=== PATIENT | female | born 1985 | race Hispanic/Latino ===

== ENCOUNTER 2018-03-06 10:25 | Day surgery (SDC) ==
[2018-03-06 10:50] VITALS: BMI 30.9
[2018-03-06 10:59] VITALS: BP 116/71; TEMP 98.6
--- NOTE | 2018-03-06 11:56 | HP ---
DATE OF SERVICE: 03/06/2018 LOCATION: Triage, bed A. REASON FOR EVALUATION: Small blood clot passed spontaneously this morning. EGA: 36 weeks and 6 days. This is a patient of Kia Briceno at [facility] [place]. HISTORY OF PRESENT ILLNESS: This is a 32-year-old G2, P1 who sees Kia Briceno for care w ho now is 36 weeks and 6 days with a history of x1, who desires a trial of labor after C-se ction. She arrives because she passed a small coin sized blood clot earlier this morning despite not having any recent trauma, sexual intercourse, or recent cervical exam. There are no contractions or ruptured membranes. She has good movement. She has a history of a right leg DVT in the past for which she is on baby aspirin. She was recommended to take Lovenox, but she deferred/declined. REVIEW OF SYSTEMS: Complete review of systems was checked and is otherwise negative unless specified in the HPI. ALLERGIES: TOPICAL IODINE. PAST SURGICAL HISTORY: 1. Lymph node dissection axillary bilaterally due to hidradenitis suppurativa. 2. . MEDICATIONS: Baby aspirin. FAMILY HISTORY: Mother had a significant pulmonary embolic event. PHYSICAL EXAMINATION: VITAL SIGNS: Blood pressure is 116/71. She is afebrile and had a temperature of 98.6, respirations are 18. GENERAL: Clinically, she is in no acute distress. The patient was seen and evaluated at bedside. ABDOMEN: Soft. There is no palpable contractions. PELVIC: There is no evidence of vaginal bleeding clinically. There is no evidence of ruptured membr anes clinically. On cervical exam she was closed, thick and high. There is no vaginal active bleedi ng noted. On monitor nonstress test was performed per protocol due to a history of deep venous thrombosis and history of vaginal "bleeding", with the NST being reactive. There is no specific contraction pa ttern on tocodynamometer, although there is some slight irritability. ASSESSMENT: This is a 32-year-old, G2, P1, prior x1, who desires a TOLAC, who is currently on baby aspirin as she declined Lovenox for prophylaxis against deep venous thrombosis, who is here with an incidental passage of a coin sized blood clot. No evidence of labor or abruption clinically. PLAN: 1. Reassurance given. 2. I advised the patient to consider Lovenox , which she says that she will do. She also used Lovenox after her previous delivery. 3. It is recommended that she follow up with Hematology/Oncology for thrombophilia management once t his is concluded due to family history and prior DVT history. 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 4. No acute obstetric issues at this time. 5. Okay for outpatient management. 6. Hidradenitis suppurativa inactive at this time.
== END 2018-03-06 11:50 | disposition home health service (06) ==
LOC: L&D/OP 10:25 → EEVIPCON 10:25 → L&D/OP 11:50
PROVIDERS: ATTEND Student in an Organized Health Care Education/Training Program
DX: O22.33 Deep phlebothrombosis in pregnancy, third trimester (principal); Z3A.36 36 weeks gestation of pregnancy; Z91.041 Radiographic dye allergy status
CPT/HCPCS: 99282

== ENCOUNTER 2018-03-29 14:51 | Inpatient (IN) | payer BC ==
[2018-03-29] MEDS ORDERED: Lidocaine 1% (PF) 30 ML VIAL ONE (15:36)
[2018-03-29] MEDS ORDERED: NS / Oxytocin 40 units/1000ml 1,000 ML ONE (15:36)
[2018-03-29] MEDS ORDERED: Ondansetron PF 4 MG/2 ML Vial IVP PRN (16:29)
[2018-03-29] MEDS ORDERED: Penicillin G Potassium 5 MILL.UNITS VIAL ONE (16:29)
[2018-03-29] MEDS ORDERED: Promethazine HCl 25 MG/ML VIAL IM PRN (16:29)
[2018-03-29] MEDS ORDERED: Lidocaine 1% (PF) 30 ML VIAL SC PRN (16:29)
[2018-03-29] MEDS ORDERED: NS / Oxytocin 40 units/1000ml 1,000 ML IV PRN (16:29)
[2018-03-29] MEDS: Lactated Ringer's 1,000 ML IV SCH (16:30)
[2018-03-29] MEDS ORDERED: Methylergonovine 0.2 MG/ML VIAL IM PRN (16:34)
[2018-03-29] MEDS ORDERED: Diphenoxylate HCl/Atropine Tablet PO PRN ×2 (16:34)
[2018-03-29] MEDS ORDERED: Carboprost 250 MCG/ML AMP IM PRN (16:34)
[2018-03-29] MEDS ORDERED: Acetaminophen 500 MG TAB PO PRN (16:34)
[2018-03-29] MEDS ORDERED: Butorphanol Tartrate 1 MG/ML VIAL SLOW IVP PRN (16:34)
[2018-03-29] MEDS ORDERED: Zolpidem Tartrate 5 MG TAB PO PRN (16:34)
[2018-03-29] MEDS ORDERED: Misoprostol 200 MCG TAB PR PRN (16:34)
[2018-03-29] MEDS ORDERED: Ibuprofen 800 MG TAB PO PRN (16:34)
[2018-03-29] MEDS ORDERED: HYDROcodone/Acetaminophen 5/325 mg Tablet PO PRN ×2 (16:34)
[2018-03-29] MEDS ORDERED: Penicillin G Potassium 5 MILL.UNITS in Sodium Chloride 0.9% 100 ML IVPB SCH (17:00)
[2018-03-29 17:13] LABS: Hemoglobin 12.7 g/dL (12.0-16.0); Mean Corpuscular HGB CONC 33.9 g/dL (32.0-36.0); Mean Corpuscular Volume 88.7 fL (78.0-98.0); Mean Platelet Volume 9.7 fL (7.4-10.4); Platelet Count 196 thou/uL (130-400); RBC Distribution Width 11.6 % (11.5-14.5); Red Blood Cell (RBC) Count 4.23 mill/uL (4.20-5.40); White Blood Cell (WBC) Count 8.5 thou/uL (4.8-10.8)
[2018-03-29 17:44] VITALS: BMI 31.3
[2018-03-29 17:53] LABS: HBSAg Index 0.16 S/CO (0-0.99); Hep B Surf Ag Non-Reactive S/CO (NonReactive); Syphilis Antibody Nonreactive (Nonreactive); Syphilis Antibody Index 0.05 S/CO (<1.00 Non-Reactive)
[2018-03-29] MEDS: Penicillin G 2.5 MILL.units 2.5 MILL.UNITS in Premix Bag 1 BAG IVPB SCH (20:10)
--- NOTE | 2018-03-29 23:07 | PDOC.LDHP ---
Labor and Delivery H&P Chief complaint: contractions HPI: She started having irregular contractions on 03/28/18 in the am. She was up all night with continued irregular contractions. 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 She arrived a the hospital around 1530 Current gestational age (weeks): 40 Due date: 03/28/18 Dating criteria: last menstrual period Grav: 3 Para: 1 OB History Details: 12/2016 LTCS for OP/chorio/failure to progess/fhts Current complications: none, other (on aspirin daily for hx of DVT on OCPs) Past Medical History: DVT 2015 right calf. on OCPs. Neg coag workup Current medications: pre- vitamins, other (aspirin) Previous surgical history: low tranverse CS (2016) Allergies/Adverse Reactions: Allergies Allergy/AdvReac Type Severity Reaction Status Date / Time iodine Allergy Verified 03/29/18 18:32 Social history: none - Physical Exam Vital signs reviewed and normal: yes General: breathing through contractions Heart: RRR Lungs: nonlabored breathing Abdomen: gravid FHT: category 1 [place] contractions every: q3-4 - Vaginal Exam cm dilated: 8 Effacement: 90% Station: -1 - OB Labs Blood type: B RH: positive Antibody Screen: negative HIV: negative RPR: negative HEPSAg: negative 1 hour GCT: negative GBS: positive Urine drug screen: not done Rubella: non-immune - Assessment L&D Assessment: term patient in labor - Plan Plan: admit to L&D, GBS antibiotic prophylaxis, informed consent obtained
--- NOTE | 2018-03-29 23:09 | PDOC.OPDEL ---
OB Operative/Delivery Note Delivery Dr/Surgeon: Lucie Briceno CNM Pre-Delivery Diagnosis: active labor Procedure/Post Delivery Dx: vaginal delivery after CS Weeks gestation: 40 Anesthesia: none - Findings A Sex: male Weight: 8 lb 8 oz - 1 min: 9 - 5 min: 9 - Additional Findings/Plan Placenta delivered: spontaneous Repaired Obstetrical Laceration: 1st degree (bilateral labial) Estimated blood loss: 500ml See nurses notes for QBL Compilations/Other Findings: OP presentation at Post delivery plan: routine recovery (Start DVT prophylaxsis at 12-24 hr post delivery.)
[2018-03-30] MEDS ORDERED: HYDROcodone/Acetaminophen 5/325 mg Tablet PO PRN (01:18)
[2018-03-30] MEDS ORDERED: Milk Of Magnesia 30 ML UDCUP PO PRN (01:18)
[2018-03-30] MEDS ORDERED: Methylergonovine 0.2 MG/ML VIAL IM PRN (01:18)
[2018-03-30] MEDS ORDERED: NS / Oxytocin 40 units/1000ml 1,000 ML IV SCH (01:18)
[2018-03-30] MEDS ORDERED: Benzocaine/Menthol 20-0.5% 60 ML CAN TOP PRN (01:18)
[2018-03-30] MEDS ORDERED: Misoprostol 200 MCG TAB VAG PRN (01:18)
[2018-03-30] MEDS ORDERED: Ondansetron PF 4 MG/2 ML Vial IVP PRN (01:18)
[2018-03-30] MEDS ORDERED: Bisacodyl 10 MG SUPP PR PRN (01:18)
[2018-03-30 05:46] LABS: Hemoglobin 10.4 g/dL (12.0-16.0); Mean Corpuscular HGB CONC 33.4 g/dL (32.0-36.0); Mean Corpuscular Hemoglobin 29.5 pg (27.0-31.0); Mean Corpuscular Volume 88.2 fL (78.0-98.0); Mean Platelet Volume 9.4 fL (7.4-10.4); Platelet Count 172 thou/uL (130-400); RBC Distribution Width 11.6 % (11.5-14.5); Red Blood Cell (RBC) Count 3.54 mill/uL (4.20-5.40); White Blood Cell (WBC) Count 14.2 thou/uL (4.8-10.8)
[2018-03-30] MEDS: Ibuprofen 800 MG TAB PO SCH ×3 (05:52→21:10)
[2018-03-30] MEDS: HYDROcodone/Acetaminophen 5/325 mg Tablet PO PRN (06:19)
[2018-03-30] MEDS: Ferrous Sulfate 325 MG TAB PO SCH ×2 (07:25→15:12)
[2018-03-30] MEDS: Penicillin G 2.5 MILL.units 2.5 MILL.UNITS in Premix Bag 1 BAG IVPB SCH (07:27)
[2018-03-30] MEDS: Lactated Ringer's 1,000 ML IV SCH (07:27)
[2018-03-30] MEDS ORDERED: Adacel (T-DAP) 0.5 ML VIAL IM ONE (09:00)
[2018-03-30] MEDS ORDERED: Measles/Mumps/Rubella 10 MCG/0.5 ML VIAL SC ONE (09:00)
[2018-03-30] MEDS: Enoxaparin Sodium 40 MG/0.4 ML SYRINGE SC SCH (09:13)
[2018-03-30] MEDS: Prenatal Vitamin 1 TAB PO SCH (09:13)
[2018-03-30] MEDS: Docusate Calcium (SURFAK) 240 MG CAP PO SCH ×2 (09:13→21:11)
--- NOTE | 2018-03-30 13:54 | PDOC.PP ---
Post Progress Note Post Day #: 1 Subjective: doing well. is okay, is sleepy. the abscess near the top of her sacrum is irritated again now that she is no longer payigng attention to the contractions. PO intake tolerated: yes Flatus: yes Ambulation: yes Vital Signs (12 hours) Temp Pulse Resp BP Pulse Ox 03/30/18 11:18 98.4 F 97 20 105/69 03/30/18 07:34 98.0 F 71 20 101/70 100 03/30/18 03:45 98.1 F 80 18 97/55 L 03/30/18 02:15 97.7 F 91 18 109/57 L Weight Weight 200 lb - Physical Examination General: NAD Cardiovascular: no m/r/g Respiratory: non-labored breathing Abdominal: lochia (minimal) Fundus firm & at: -1 Extremities: negative homans (B) Skin: no rash Neurological: no gross focal deficits Psychiatric: A&Ox3 Result Diagrams: 03/30/18 05:32 Additional Labs: Post Labs Blood Type B POSITIVE 03/29/18 16:59 Hep Bs Antigen Non-Reactive S/CO (NonReactive) 03/29/18 16:59 (1) Vaginal after Code(s): O34.219 - MATERNAL CARE FOR UNSP TYPE SCAR FROM PREVIOUS DEL Status: Acute (2) History of DVT (deep vein thrombosis) Code(s): Z86.718 - PERSONAL HISTORY OF OTHER VENOUS THROMBOSIS AND EMBOLISM Status: Acute
--- NOTE | 2018-03-30 14:35 | ULT ---
ULTRASOUND SOFT TISSUE: HISTORY: Pilonidal cyst. COMPARISON: None. FINDINGS: Real-time, yoder scale, and color evaluation of the sacral alae was performed. The complex cystic str ucture in the superficial soft tissues measuring 2.7 x 3.3 x 1.9 cm. This corresponds to a complicat ed [id number] cyst. There is edema within the adjacent soft tissues. IMPRESSION: Findings suggestive of pilonidal cyst in the superficial soft tissues just below the lower end of the coccyx. POS: LD
--- NOTE | 2018-03-30 17:41 | PDOC.EVN ---
Event Note - Event Note Event Note: US is consistent with pilonidal cyst. Needs excision. Plan for OR tomorrow. Discussed with RN. Have placed NPO orders, ct. fadi rowland We will continue to follow along.
[2018-03-30] MEDS ORDERED: Cefadroxil Hydrate 500 mg/5 ml Suspenion PO SCH (21:00)
[2018-03-30] MEDS ORDERED: Cefadroxil Hydrate 250 mg/5 ml Suspensio PO SCH (21:30)
[2018-03-31] MEDS: HYDROcodone/Acetaminophen 5/325 mg Tablet PO PRN (04:14)
[2018-03-31] MEDS: Ibuprofen 800 MG TAB PO SCH ×2 (05:57→13:41)
[2018-03-31 08:14] VITALS: BP 111/72; TEMP 98.8
[2018-03-31] MEDS ORDERED: Cefadroxil Hydrate 250 mg/5 ml Suspensio PO SCH ×2 (09:00)
[2018-03-31] MEDS: Ferrous Sulfate 325 MG TAB PO SCH (09:02)
[2018-03-31] MEDS: Prenatal Vitamin 1 TAB PO SCH (09:34)
[2018-03-31] MEDS: Docusate Calcium (SURFAK) 240 MG CAP PO SCH (09:34)
[2018-03-31] MEDS: Enoxaparin Sodium 40 MG/0.4 ML SYRINGE SC SCH (09:35)
--- NOTE | 2018-03-31 10:52 | PDOC.PP ---
Post Progress Note Post Day #: 2 Subjective: doing well. decided not to have surgery on pilonidal cyst but will continue to take antibiotics. PO intake tolerated: yes Flatus: yes Ambulation: yes Vital Signs (12 hours) Temp Pulse Resp BP Pulse Ox 03/31/18 08:13 98.8 F 75 20 111/72 100 Weight Weight 200 lb - Physical Examination General: NAD Respiratory: non-labored breathing Abdominal: + bowel sounds Extremities: negative homans (B) Skin: no rash Neurological: no gross focal deficits Psychiatric: A&Ox3 Result Diagrams: 03/30/18 05:32 Additional Labs: Post Labs Blood Type B POSITIVE 03/29/18 16:59 Hep Bs Antigen Non-Reactive S/CO (NonReactive) 03/29/18 16:59 (1) Vaginal after Code(s): O34.219 - MATERNAL CARE FOR UNSP TYPE SCAR FROM PREVIOUS DEL Status: Acute (2) History of DVT (deep vein thrombosis) Code(s): Z86.718 - PERSONAL HISTORY OF OTHER VENOUS THROMBOSIS AND EMBOLISM Status: Acute - Assessment/Plan dischage home today on abx and lovenox
== END 2018-03-31 14:45 | disposition home or self-care (01) | DRG 807 ==
LOC: L&D/OP 14:51 → L&D 18:37 → 3SW 03-30 01:13
PROVIDERS: ADMIT Obstetrics & Gynecology; ATTEND Obstetrics & Gynecology
PROC: 10E0XZZ Delivery of Products of Conception, External Approach (ICD-10-PCS; principal; 2018-03-29)
PROC: 0HQ9XZZ Repair Perineum Skin, External Approach (ICD-10-PCS; 2018-03-29)
PROC: 10907ZC Drainage of Amniotic Fluid, Therapeutic from Products of Conception, Via Natural or Artificial Opening (ICD-10-PCS; 2018-03-29)
DX: O34.211 Maternal care for low transverse scar from previous cesarean delivery (principal); Z37.0 Single live birth; Z86.718 Personal history of other venous thrombosis and embolism; Z79.82 Long term (current) use of aspirin; Z3A.40 40 weeks gestation of pregnancy; O70.0 First degree perineal laceration during delivery; O99.824 Streptococcus B carrier state complicating childbirth
CPT/HCPCS: 36415; 76999; 84112; 85027; 86780; 86850; 86900; 86901; 87340; 99285; J1650; J2001; J2540

== ENCOUNTER 2018-04-04 11:22 | Emergency (ER) | payer BC ==
[2018-04-04 12:03] LABS: #Eosinphils 0.1 thou/uL (0.0-0.7); #Lymphocytes 1.3 thou/uL (1.20-3.40); #Monocytes 0.4 thou/uL (0.11-0.59); #Neutrophils 3.5 thou/uL (1.40-6.50); %Basophils 0.5 % (0.0-1.0); %Eosinophils 1.2 % (0.0-10.0); %Lymphocytes 24.3 % (21.0-51.0); %Monocytes 7.6 % (0.0-10.0); %Neutrophils 66.4 % (42.0-75.0); Hemoglobin 10.7 g/dL (12.0-16.0); Mean Corpuscular HGB CONC 32.9 g/dL (32.0-36.0); Mean Corpuscular Hemoglobin 29.4 pg (27.0-31.0); Mean Corpuscular Volume 89.5 fL (78.0-98.0); Mean Platelet Volume 8.5 fL (7.4-10.4); Platelet Count 274 thou/uL (130-400); RBC Distribution Width 11.6 % (11.5-14.5); Red Blood Cell (RBC) Count 3.65 mill/uL (4.20-5.40); White Blood Cell (WBC) Count 5.3 thou/uL (4.8-10.8)
[2018-04-04 12:30] LABS: ALT (SGPT) 29 U/L (8-55); AST (SGOT) 44 U/L (5-34); Albumin 3.2 g/dL (3.5-5.0); Alkaline Phosphatase 94 U/L (40-150); Anion Gap 12 mmol/L (10-20); BUN (Urea Nitrogen) 9 mg/dL (7.0-18.7); Bilirubin, Total 0.8 mg/dL (0.2-1.2); CK (CPK) 416 U/L (29-168); Calc. Creatinine Clearance 0 mL/min (70-130); Calcium 8.7 mg/dL (7.8-10.44); Carbon Dioxide 21 mmol/L (22-29); Chloride 108 mmol/L (98-107); Estimated GFR-MDRD Greater than 90; Globulin 3.8 g/dL (2.4-3.5); Glucose 74 mg/dL (70-105); Potassium 4.4 mmol/L (3.5-5.1); Sodium 137 mmol/L (136-145)
[2018-04-04 12:33] LABS: CKMB 3.6 ng/mL (0-6.6); Troponin I Less than 0.010 ng/mL (< 0.028)
--- NOTE | 2018-04-04 13:03 | RAD ---
ONE VIEW CHEST: HISTORY: Dyspnea. Headache and shortness of breath. . COMPARISON: None. FINDINGS: Normal cardiac silhouette. The pulmonary vessels and hilum are normal. No consolidation or mass. N o pneumothorax or osseous abnormalities. IMPRESSION: No acute cardiopulmonary process. POS: C
--- NOTE | 2018-04-04 13:16 | CT ---
CT ANGIOGRAM CHEST: DATE: 04/04/2018. COMPARISON: None. History female with shortness of breath, assess for pulmonary embolism. TECHNIQUE: Serial axial CT imaging at 2.5 mm intervals from thoracic inlet through upper abdomen with IV contras t using a CT angiogram protocol. Coronal and oblique sagittal 3D reformatted imaging obtained. FINDINGS: There is no hilar, mediastinal, or axillary lymphadenopathy seen. Imaged upper abdomen appears grossly unremarkable. No pleural, pericardial, or mediastinal fluid is seen. Adequate opacification of the pulmonary arterial vasculature is present with no filling defect seen t o suggest the presence of acute pulmonary embolism. Tiny nodular density seen along the major fissure on image 53 suggesting a probable pulmonary lymph n ode. There is a nonspecific pleural-based nodule within the right middle lobe on image 61 measuring approx imately 4 mm of doubtful clinical significance. No acute osseous abnormality noted. IMPRESSION: No evidence for pulmonary embolism. Incidental findings as documented above. POS: [facility]
[2018-04-04] MEDS ORDERED: ISOVUE-370 76%-LOCM 1 ML ONE (13:36)
== END 2018-04-04 14:04 | disposition home or self-care (01) ==
LOC: ERS 11:22
DX: O90.89 Other complications of the puerperium, not elsewhere classified (principal); R06.00 Dyspnea, unspecified
CPT/HCPCS: 71045; 71275; 80053; 82550; 82553; 83880; 84484; 85025; 93005